=== PATIENT | female | born 1965 | race Caucasian/White ===

== ENCOUNTER 2016-08-23 13:16 | Emergency (ER) | payer MEDICAID ==
[~2016-08-23] VITALS: Ht 165.1 cm; Wt 65.9 kg
[2016-08-23 13:46] LABS: BASOPHILS # (AUTO) 0.05 K/uL (0.00-0.20); BASOPHILS % (AUTO) 0.4 % (0.0-2.0); EOSINOPHILS # (AUTO) 0.05 K/uL (0.00-0.70); EOSINOPHILS % (AUTO) 0.43 % (1.0-6.0); HEMATOCRIT 41.8 % (36-46); HEMOGLOBIN 13.9 g/dL (12.0-16.0); LYMPHOCYTES # (AUTO) 2.7 K/uL (1.0-4.8); LYMPHOCYTES % (AUTO) 22.6 % (22.0-44.0); MEAN CORPUSCULAR HGB CONC 33.3 G/dL (31.0-37.0); MEAN CORPUSCULAR VOLUME 87 fL (80-100); MONOCYTES # (AUTO) 0.7 K/uL (0.1-1.0); NEUTROPHILS # (AUTO) 8.5 K/uL (1.8-7.7); NEUTROPHILS % (AUTO) 70.6 % (40.0-70.0); PLATELET COUNT (AUTO) 386 K/uL (150-450); RED BLOOD CELL COUNT(AUTO) 4.79 MIL/uL (4.00-5.20); RED CELL DISTRIBUTION WIDTH 13.3 % (11.5-14.5); WHITE BLOOD COUNT (AUTO) 12.1 K/uL (4.5-11.0)
[2016-08-23 14:01] LABS: ANION GAP 8 mmol/L (8-16); CALCIUM, TOTAL 8.5 mg/dL (8.8-10.5); CARBON DIOXIDE 29 mmol/L (22-29); CHLORIDE 104 mmol/L (98-107); CREATININE 0.74 mg/dL (0.60-1.30); GLOMERULAR FILTR. RATE CALC > 60 mL/min (>60); SODIUM SERUM 141 mmol/L (136-145); UREA NITROGEN, BLOOD 7 mg/dL (7-18)
[2016-08-23 14:06] LABS: ALANINE AMINOTRANSFERASE 21 U/L (12-78); ALBUMIN 3.6 g/dL (3.4-5.0); ASPARTATE AMINOTRANSFERASE 17 U/L (15-37); BILIRUBIN,TOTAL 0.3 mg/dL (0.1-1.0); TOTAL PROTEIN, SERUM 7.7 g/dL (6.4-8.2)
[2016-08-23 14:14] LABS: ACETAMINOPHEN < 2 mcg/mL (10-30)
[2016-08-23] MEDS ORDERED: LORazepam 2 MG/ML VIAL ONE (14:56)
[2016-08-23] MEDS ORDERED: LORazepam 2 MG/ML VIAL IM ONE (15:00)
[2016-08-23] MEDS ORDERED: HALOPERIDOL LACTATE 5 MG/ML VIAL IM ONE (15:30)
[2016-08-23] MEDS ORDERED: ALPRAZolam 0.25 MG TABLET PO ONE (21:15)
[2016-08-23 21:39] VITALS: BP 120/98
[2016-08-24] MEDS ORDERED: NAPR250T2 PO (16:34)
== END 2016-08-23 21:44 | disposition home or self-care (01) ==
LOC: EEVIPCON 13:18 → EMS 13:18
DX: F29 Unspecified psychosis not due to a substance or known physiological condition (principal); F15.129 Other stimulant abuse with intoxication, unspecified; F17.210 Nicotine dependence, cigarettes, uncomplicated; F32.9 Major depressive disorder, single episode, unspecified
CPT/HCPCS: 36415; 80053; 80307; 85025; 96372; 99285; G0480 ×2; G0481; J1630; J2060

== ENCOUNTER 2016-08-24 16:30 | Inpatient (IN) | payer MEDICAID ==
[~2016-08-24] VITALS: Ht 162.6 cm; Wt 56.7 kg
[2016-08-24] MEDS ORDERED: NAPR250T2 PO (16:34)
[2016-08-24 17:15] LABS: BASOPHILS % (AUTO) 0.5 % (0.0-2.0); EOSINOPHILS % (AUTO) 0.8 % (1.0-6.0); HEMATOCRIT 42.2 % (36-46); HEMOGLOBIN 13.7 g/dL (12.0-16.0); LYMPHOCYTES # (AUTO) 2.5 K/uL (1.0-4.8); LYMPHOCYTES % (AUTO) 17.6 % (22.0-44.0); MEAN CORPUSCULAR HEMOGLOBIN 28.7 pg (26.0-34.0); MEAN CORPUSCULAR HGB CONC 32.5 G/dL (31.0-37.0); MEAN CORPUSCULAR VOLUME 88 fL (80-100); MONOCYTES # (AUTO) 0.9 K/uL (0.1-1.0); MONOCYTES % (AUTO) 6.5 % (2.0-9.0); NEUTROPHILS # (AUTO) 10.8 K/uL (1.8-7.7); NEUTROPHILS % (AUTO) 74.6 % (40.0-70.0); PLATELET COUNT (AUTO) 369 K/uL (150-450); RED BLOOD CELL COUNT(AUTO) 4.78 MIL/uL (4.00-5.20); RED CELL DISTRIBUTION WIDTH 13.5 % (11.5-14.5); WHITE BLOOD COUNT (AUTO) 14.5 K/uL (4.5-11.0)
[2016-08-24 17:24] LABS: ANION GAP 11 mmol/L (8-16); CALCIUM, TOTAL 8.8 mg/dL (8.8-10.5); CARBON DIOXIDE 27 mmol/L (22-29); CHLORIDE 104 mmol/L (98-107); CREATININE 0.85 mg/dL (0.60-1.30); GLOMERULAR FILTR. RATE CALC > 60 mL/min (>60); POTASSIUM 4.2 mmol/L (3.5-5.1); SODIUM SERUM 142 mmol/L (136-145); UREA NITROGEN, BLOOD 18 mg/dL (7-18)
[2016-08-24 17:31] LABS: ALANINE AMINOTRANSFERASE 20 U/L (12-78); ALBUMIN 3.6 g/dL (3.4-5.0); ASPARTATE AMINOTRANSFERASE 17 U/L (15-37); BILIRUBIN,TOTAL 0.3 mg/dL (0.1-1.0)
[2016-08-24] MEDS ORDERED: HALOPERIDOL 5 MG TABLET PO ONE (19:30)
[2016-08-24] MEDS ORDERED: LORazepam 2 MG TABLET PO ONE (19:30)
[2016-08-24] MEDS ORDERED: DiphenhydrAMINE HCL 25 MG CAPSULE PO ONE (19:30)
[2016-08-24] MEDS ORDERED: ZOLPIDEM TARTRATE 10 MG TABLET PO PRN (19:45)
[2016-08-24] MEDS ORDERED: LORazepam 2 MG TABLET PO PRN (19:45)
[2016-08-24] MEDS ORDERED: HALOPERIDOL 5 MG TABLET PO PRN (19:45)
[2016-08-24] MEDS: AmLODIPine BESYLATE 5 MG TABLET PO SCH (22:00)
[2016-08-24] MEDS ORDERED: IBUPROFEN 400 MG TABLET PO PRN (22:00)
[2016-08-24 22:21] VITALS: BP 152/101
[2016-08-24 22:31] VITALS: BP 152/102
[2016-08-25] MEDS ORDERED: PNEUMOCOCCAL VACCINE POLYVALENT 0.5 ML VIAL [PPSV23] IM ONE (00:45)
[2016-08-25 09:48] VITALS: BP 124/106
[2016-08-25] MEDS: AmLODIPine BESYLATE 5 MG TABLET PO SCH (10:11)
[2016-08-25] MEDS: OLANZapine 5 MG TABLET PO SCH ×2 (10:12→17:00)
[2016-08-25] MEDS: NICOTINE 21 MG/24 HOUR PATCH TD SCH (10:13)
[2016-08-25] MEDS ORDERED: IBUPROFEN 400 MG TABLET PO PRN (16:15)
[2016-08-25] MEDS ORDERED: ACETAMINOPHEN 325 MG TABLET PO PRN (16:15)
[2016-08-25 16:42] VITALS: BP 132/98
[2016-08-26 06:35] LABS: BASOPHILS # (AUTO) 0.03 K/uL (0.00-0.20); BASOPHILS % (AUTO) 0.3 % (0.0-2.0); EOSINOPHILS # (AUTO) 0.25 K/uL (0.00-0.70); EOSINOPHILS % (AUTO) 2.66 % (1.0-6.0); HEMATOCRIT 44.2 % (36-46); HEMOGLOBIN 14.5 g/dL (12.0-16.0); LYMPHOCYTES # (AUTO) 2.6 K/uL (1.0-4.8); LYMPHOCYTES % (AUTO) 27.6 % (22.0-44.0); MEAN CORPUSCULAR HEMOGLOBIN 28.8 pg (26.0-34.0); MEAN CORPUSCULAR HGB CONC 32.7 G/dL (31.0-37.0); MEAN CORPUSCULAR VOLUME 88 fL (80-100); MONOCYTES # (AUTO) 0.8 K/uL (0.1-1.0); MONOCYTES % (AUTO) 7.8 % (2.0-9.0); NEUTROPHILS # (AUTO) 5.9 K/uL (1.8-7.7); NEUTROPHILS % (AUTO) 61.7 % (40.0-70.0); PLATELET COUNT (AUTO) 368 K/uL (150-450); RED BLOOD CELL COUNT(AUTO) 5.02 MIL/uL (4.00-5.20); RED CELL DISTRIBUTION WIDTH 13.7 % (11.5-14.5); WHITE BLOOD COUNT (AUTO) 9.6 K/uL (4.5-11.0)
[2016-08-26 07:04] LABS: CHOL/HDL RATIO 3.8 (3.9-5.7); THYROID STIMULATING HORMONE 2.9 uIU/mL (0.36-3.74)
[2016-08-26 07:17] LABS: HEMOGLOBIN A1C 6.3 % (4.5-6.2)
[2016-08-26 08:30] VITALS: BP 161/127
[2016-08-26] MEDS: OLANZapine 5 MG TABLET PO SCH ×4 (09:00→17:14)
[2016-08-26] MEDS: AmLODIPine BESYLATE 5 MG TABLET PO SCH (09:06)
[2016-08-26] MEDS: NICOTINE 21 MG/24 HOUR PATCH TD SCH (09:08)
[2016-08-26] MEDS ORDERED: AmLODIPine BESYLATE 5 MG TABLET PO ONE (09:45)
[2016-08-26 16:45] VITALS: BP 144/81
[2016-08-27 08:46] VITALS: BP 147/107
[2016-08-27] MEDS: OLANZapine 5 MG TABLET PO SCH ×2 (09:24→16:21)
[2016-08-27] MEDS: AmLODIPine BESYLATE 10 MG TABLET PO SCH (09:24)
[2016-08-27] MEDS: NICOTINE 21 MG/24 HOUR PATCH TD SCH (09:26)
[2016-08-27] MEDS ORDERED: MAGNESIUM CITRATE 300 ML ORAL SOLUTION PO ONE (11:00)
[2016-08-27 14:00] VITALS: BP 150/112
[2016-08-27 16:10] VITALS: BP 138/102
[2016-08-27] MEDS: HydrALAZINE HCL 25 MG TABLET PO SCH ×2 (16:21→18:38)
[2016-08-28 08:04] VITALS: BP 143/96
[2016-08-28] MEDS: AmLODIPine BESYLATE 10 MG TABLET PO SCH (09:01)
[2016-08-28] MEDS: HydrALAZINE HCL 25 MG TABLET PO SCH (09:02)
[2016-08-28] MEDS: OLANZapine 5 MG TABLET PO SCH (09:02)
[2016-08-28] MEDS: NICOTINE 21 MG/24 HOUR PATCH TD SCH (09:03)
[2016-08-28] MEDS ORDERED: OLAN5TAB2 PO (09:40)
[2016-08-28] MEDS ORDERED: AMLO-512 PO (09:41)
[2016-08-28] MEDS ORDERED: HYDR25 PO (09:42)
== END 2016-08-28 12:50 | disposition home or self-care (01) | DRG 750 ==
LOC: EEVIPCON 16:32 → EMS 16:32 → 3EI 19:30
PROVIDERS: ADMIT Psychiatry & Neurology Child & Adolescent Psychiatry; ATTEND Psychiatry & Neurology Child & Adolescent Psychiatry
DX: F25.9 Schizoaffective disorder, unspecified (principal); F29 Unspecified psychosis not due to a substance or known physiological condition; I10 Essential (primary) hypertension; D72.829 Elevated white blood cell count, unspecified; F17.210 Nicotine dependence, cigarettes, uncomplicated; F15.10 Other stimulant abuse, uncomplicated; M19.90 Unspecified osteoarthritis, unspecified site; F41.1 Generalized anxiety disorder; F12.10 Cannabis abuse, uncomplicated; F31.9 Bipolar disorder, unspecified; Z88.1 Allergy status to other antibiotic agents; Z79.899 Other long term (current) drug therapy; Z90.710 Acquired absence of both cervix and uterus; Z28.21 Immunization not carried out because of patient refusal; Z98.890 Other specified postprocedural states; Z71.6 Tobacco abuse counseling; Z71.51 Drug abuse counseling and surveillance of drug abuser
CPT/HCPCS: 83036; 84443; 99285; G0480